=== PATIENT | male | born 1975 | race Caucasian/White ===

== ENCOUNTER 2017-11-28 13:55 | Inpatient (IN) | payer OTHER ==
[~2017-11-28] VITALS: Ht 188 cm; Wt 90.7 kg
[2017-11-28 14:29] LABS: BASOPHILS % (AUTO) 0.3 % (0.0-2.0); EOSINOPHILS % (AUTO) 0.1 % (0.0-7.0); HEMATOCRIT 41.9 % (36.7-47.1); HEMOGLOBIN 14.3 g/dL (12.5-16.3); LYMPHOCYTES # (AUTO) 1.7 K/uL (20.0-40.0); LYMPHOCYTES % (AUTO) 13.8 % (20.5-51.5); MEAN CORPUSCULAR HEMOGLOBIN 30.5 uug (23.8-33.4); MEAN CORPUSCULAR HGB CONC 34 g/dL (32.5-36.3); MEAN CORPUSCULAR VOLUME 89.2 fL (73.0-96.2); MONOCYTES # (AUTO) 1.3 K/uL (2.0-10.0); MONOCYTES % (AUTO) 10.4 % (0.0-11.0); NEUTROPHILS # (AUTO) 9.3 K/uL (1.8-8.9); NEUTROPHILS % (AUTO) 75.4 % (38.5-71.5); PLATELET COUNT (AUTO) 163 K/uL (152-348); RED BLOOD CELL COUNT(AUTO) 4.69 MIL/uL (4.06-5.63); WHITE BLOOD COUNT (AUTO) 12.3 K/uL (3.6-10.2)
[2017-11-28] MEDS ORDERED: ONDANSETRON 4 MG/2 ML VIAL IV ONE (14:30)
[2017-11-28] MEDS ORDERED: HYDROMORPHONE 1 MG/1 ML DISP.SYRIN IV ONE (14:30)
[2017-11-28] MEDS ORDERED: IV NORMAL SALINE 500 ML BAG IV ONE (14:30)
[2017-11-28 14:38] LABS: CREATININE 1.1 mg/dL (0.6-1.3); POTASSIUM 3.6 mmol/L (3.5-5.1)
[2017-11-28 14:48] LABS: BILIRUBIN,DIRECT 0.3 mg/dL (0.0-0.2); BILIRUBIN,TOTAL 1.1 mg/dL (0.1-1.0)
[2017-11-28 14:49] LABS: TOTAL PROTEIN, SERUM 7.2 g/dL (6.4-8.2)
--- NOTE | 2017-11-28 14:58 | NUR ---
Patient stated he needed to obtain items from his car, exited ER. MAXIMO stated OK. Addendum: 11/28/17 at 1659 by SMOOTH IV removed. Catheter intact and site benign. Pressure and 4x4 gauze applied to site. No bleeding noted.
--- NOTE | 2017-11-28 15:02 | NUR ---
MAXIMO speaking to Luis Daly (SURGERY).
--- NOTE | 2017-11-28 15:58 | NUR ---
Patient did not return from his car, a call was placed to the patient's cell phone and he stated he was on his way back inside.
--- NOTE | 2017-11-28 16:22 | NUR ---
Patient returned to room. ERMD notified.
--- NOTE | 2017-11-28 16:50 | NUR ---
Dr. Cole and Arias Ramirez (SENIOR LINUX ENGINEER) at bedside.
--- NOTE | 2017-11-28 16:50 | NUR ---
Full telephone SBAR report received by JAY Morse.
[2017-11-28] MEDS ORDERED: METRONIDAZOLE 500 MG/NS 100ML 100 ML IV ONE (17:00)
[2017-11-28] MEDS ORDERED: CEFTRIAXONE 1 G VIAL ONE (17:00)
[2017-11-28] MEDS ORDERED: ONDANSETRON 4 MG/2 ML VIAL IV PRN (17:00)
[2017-11-28] MEDS ORDERED: METRONIDAZOLE 500 MG/NS 100 ML PIGGYBACK IV ONE (17:00)
[2017-11-28] MEDS ORDERED: CEFTRIAXONE 1 G in IV DEXTROSE 5% 50 ML IV ONE (17:00)
[2017-11-28] MEDS ORDERED: MORPHINE SULFATE 2 MG/1 ML DISP.SYRIN IV PRN (17:00)
[2017-11-28 17:30] VITALS: BP 137/66
[2017-11-28] MEDS ORDERED: MORPHINE SULFATE 4 MG/1 ML DISP.SYRIN IV PRN (17:30)
--- NOTE | 2017-11-28 17:30 | NUR ---
Pt walked into the unit with ER nurse to CCU-4 for admission (med/surg). Pt a&Ox4, 0 complains of pain. Pt verbalized understanding of plan of care.
--- NOTE | 2017-11-28 17:47 | NUR ---
Pt. admitted to [facility], under care of Arias Ramirez (STEPHANIE) Belongs List completed
[2017-11-28] MEDS: IV NS 1000 ML 1,000 ML IV PRN (17:53)
--- NOTE | 2017-11-28 18:55 | NUR ---
Pt transferred to room 205 med/surg. Pt stable and nad noted upon transfer.
[2017-11-28 20:00] VITALS: BP 115/61
--- NOTE | 2017-11-28 20:00 | NUR ---
Received patient laying comfortably in bed. No acute distress noted. Patient is A/O x 4. NPO status. Patient report a slight discomfort in the abdomen area but refuse pain medication. Reported chills. Vital signs stable. No temperature. IVF infusing on the Right FA. Safety initiated. Call light within reach. Bed in low and locked position. Will continue to monitor.
[2017-11-28] MEDS: METRONIDAZOLE 500 MG/NS 100ML 500 MG in PREMIXED 1 EACH IV SCH (21:35)
[2017-11-29 04:00] VITALS: BP 114/63
[2017-11-29] MEDS: IV NS 1000 ML 1,000 ML IV PRN ×2 (05:18→10:31)
[2017-11-29] MEDS: METRONIDAZOLE 500 MG/NS 100ML 500 MG in PREMIXED 1 EACH IV SCH (05:18)
--- NOTE | 2017-11-29 05:33 | NUR ---
Patient slept intermittently t/o shift. No acute distress noted. Patient remains A/O x 4. Maintained NPO. Patient report a slight discomfort in the abdomen area but refuse pain medication. Vital signs stable. Slight temperature. Cooling measures implemented. Latest temperature was 98.8. IVF infusing on the Right FA. no signs of leaking. Safety and comfort measures maintained t/o shift. Call light within reach. Bed in low and locked position. Room is kept clutter free. All meds given as ordered. All needs met.
[2017-11-29 06:57] LABS: BASOPHILS # (AUTO) 0.1 K/uL (0.0-8.0); BASOPHILS % (AUTO) 0.7 % (0.0-2.0); EOSINOPHILS % (AUTO) 0.2 % (0.0-7.0); HEMOGLOBIN 13.4 g/dL (12.5-16.3); LYMPHOCYTES # (AUTO) 1.3 K/uL (20.0-40.0); LYMPHOCYTES % (AUTO) 13.2 % (20.5-51.5); MEAN CORPUSCULAR HEMOGLOBIN 31.6 uug (23.8-33.4); MEAN CORPUSCULAR HGB CONC 35 g/dL (32.5-36.3); MEAN CORPUSCULAR VOLUME 89.9 fL (73.0-96.2); MONOCYTES % (AUTO) 9.8 % (0.0-11.0); NEUTROPHILS # (AUTO) 7.4 K/uL (1.8-8.9); NEUTROPHILS % (AUTO) 76.1 % (38.5-71.5); PLATELET COUNT (AUTO) 146 K/uL (152-348); RED BLOOD CELL COUNT(AUTO) 4.23 MIL/uL (4.06-5.63); WHITE BLOOD COUNT (AUTO) 9.8 K/uL (3.6-10.2)
[2017-11-29 07:14] LABS: CREATININE 1.1 mg/dL (0.6-1.3); MAGNESIUM 1.9 mg/dL (1.8-2.4); PHOSPHOROUS 3.5 mg/dL (2.5-4.9); POTASSIUM 3.6 mmol/L (3.5-5.1)
--- NOTE | 2017-11-29 07:30 | NUR ---
ON BED, RESTING. DENIES ACUTE PAIN, ANXIOUS FOR DIET ADVANCE, WILL ADVISED OF CHANGE IN NURSING PLAN. APPRECIATIVE.
[2017-11-29] MEDS: PANTOPRAZOLE SODIUM 40 MG VIAL IV SCH (08:35)
--- NOTE | 2017-11-29 09:30 | NUR ---
VISITOR AT BEDSIDE, SUPPORTIVE OF PATIENT CARE.
--- NOTE | 2017-11-29 11:01 | NUR ---
DIET ADVANCED TO CLEAR LIQUID ORDERED, WILL MONITOR.
[2017-11-29 11:32] VITALS: BP_SYST 100; BP_DIAS 25; BP_DIAS 51
[2017-11-29] MEDS: PIPERACILLIN/TAZOBACTAM/D5W 50 ML IV SCH ×2 (12:33→18:07)
--- NOTE | 2017-11-29 16:00 | NUR ---
AMBULATED IN HALLWAY, TOLERATED WELL. TAKING FLUIDS WELL, VOIDING WELL. DIDNT LIKE ONE FLUID FROM DIETARY, PATIENT STATED WILL NOT TAKE, REINFORCED.
[2017-11-29 16:09] VITALS: BP 102/58
[2017-11-29] MEDS ORDERED: CEFTRIAXONE 1 G in IV DEXTROSE 5% 50 ML IV SCH (17:00)
--- NOTE | 2017-11-29 19:17 | NUR ---
SEEMED TIRED , WANTED TO SLEEP OFF DISCOMFORT ABDOMEN, REFUSED PAIN MED FOR SHIFT
[2017-11-29 19:30] VITALS: BP 107/60
--- NOTE | 2017-11-29 20:00 | NUR ---
Received patient laying comfortably in bed. No acute distress noted. Patient is A/O x 4. Clear liquid diet. Patient report a slight discomfort in the abdomen area after drinking milk, but refuse medication. Vital signs stable. IVF infusing on the Right FA. Safety initiated. Call light within reach. Bed in low and locked position. Will continue to monitor.
--- NOTE | 2017-11-29 20:30 | NUR ---
Patient running a temperature 100.8. Cooling measures implemented. Informed LOGGING WORKER Arias. New orders were given. Tylenol given to patient. Will continue to monitor.
[2017-11-29] MEDS: ACETAMINOPHEN 325 MG TABLET PO PRN (20:34)
[2017-11-30] MEDS: PIPERACILLIN/TAZOBACTAM/D5W 50 ML IV SCH ×5 (00:05→23:59)
--- NOTE | 2017-11-30 00:11 | NUR ---
Rechecked temperature 98.4 orally. Reports discomfort. Will closely monitor.
[2017-11-30 04:55] VITALS: BP 104/62
--- NOTE | 2017-11-30 05:17 | NUR ---
Patient slept intermittently t/o shift. No acute distress noted. Patient remains A/O x 4. Maintained NPO since midnight per EDWIN Bianchi. Patient report a slight discomfort in the abdomen area but refuse pain medication. 0400 Vital signs stable. No temperature. IVF infusing on the Right FA. Patent and intact. Urinating ok. Reports having a small BM. Safety and comfort measures maintained t/o shift. Call light within reach. Bed in low and locked position. Room is kept clutter free. All meds given as ordered. All needs met.
[2017-11-30] MEDS: IV NS 1000 ML 1,000 ML IV PRN (06:08)
[2017-11-30 06:21] LABS: BASOPHILS # (AUTO) 0.1 K/uL (0.0-8.0); BASOPHILS % (AUTO) 0.6 % (0.0-2.0); EOSINOPHILS # (AUTO) 0.1 K/uL (0.0-0.7); EOSINOPHILS % (AUTO) 0.7 % (0.0-7.0); HEMATOCRIT 38.3 % (36.7-47.1); HEMOGLOBIN 13.5 g/dL (12.5-16.3); LYMPHOCYTES # (AUTO) 1.3 K/uL (20.0-40.0); LYMPHOCYTES % (AUTO) 12.5 % (20.5-51.5); MEAN CORPUSCULAR HEMOGLOBIN 31.2 uug (23.8-33.4); MEAN CORPUSCULAR HGB CONC 35 g/dL (32.5-36.3); MEAN CORPUSCULAR VOLUME 88.7 fL (73.0-96.2); MONOCYTES % (AUTO) 9.9 % (0.0-11.0); NEUTROPHILS # (AUTO) 7.8 K/uL (1.8-8.9); NEUTROPHILS % (AUTO) 76.3 % (38.5-71.5); PLATELET COUNT (AUTO) 157 K/uL (152-348); RED BLOOD CELL COUNT(AUTO) 4.32 MIL/uL (4.06-5.63); WHITE BLOOD COUNT (AUTO) 10.2 K/uL (3.6-10.2)
--- NOTE | 2017-11-30 06:36 | NUR ---
Patient running a temperature 100.1. Cooling measures implemented. Will continue to monitor.
[2017-11-30 06:43] LABS: CREATININE 1.1 mg/dL (0.6-1.3); POTASSIUM 3.6 mmol/L (3.5-5.1)
[2017-11-30] MEDS: PANTOPRAZOLE SODIUM 40 MG VIAL IV SCH (09:30)
[2017-11-30 11:16] VITALS: BP 112/64
[2017-11-30 15:10] VITALS: BP 117/52
[2017-11-30] MEDS: ACETAMINOPHEN 325 MG TABLET PO PRN (15:20)
--- NOTE | 2017-11-30 16:39 | NUR ---
MEDICATING FOR FEVER, INITIATING COOLING MEASURES, AMBULATING HE WISHES
--- NOTE | 2017-11-30 18:42 | NUR ---
INFORMED ABOUT PT TEMP 101, STATES WILL F/U IN THE MORNING.
[2017-11-30 19:00] VITALS: BP 101/47
--- NOTE | 2017-11-30 19:00 | NUR ---
UP AND WALKING AROUND, COOLING MEASURES INITIATED FOR TEMP 101.
--- NOTE | 2017-11-30 20:00 | NUR ---
Received patient laying comfortably in bed. Denies pain and SOB. IVF infusing on the left AC. A/O x 4. Ambulatory with steady gait. NPO status. No skin issues. Safety initiated. Call light within reach. Will continue to monitor.
[2017-12-01 04:24] VITALS: BP 123/58
--- NOTE | 2017-12-01 05:23 | NUR ---
No changes t/o shift. No acute distress. Remains A/O x 4. IVF fluids infusing. Refuse pain or discomfort. Vitals signs stable. Latest temp was 99.2. Good urine output. Safety and comfort measures maintained t/o shift. All meds given as ordered. All needs met.
[2017-12-01] MEDS: IV NS 1000 ML 1,000 ML IV PRN ×2 (05:30→20:31)
[2017-12-01] MEDS: PIPERACILLIN/TAZOBACTAM/D5W 50 ML IV SCH ×4 (05:30→23:58)
[2017-12-01 06:14] LABS: BASOPHILS % (AUTO) 0.4 % (0.0-2.0); EOSINOPHILS % (AUTO) 0.4 % (0.0-7.0); HEMATOCRIT 38.5 % (36.7-47.1); HEMOGLOBIN 13.5 g/dL (12.5-16.3); LYMPHOCYTES # (AUTO) 1.5 K/uL (20.0-40.0); MEAN CORPUSCULAR HEMOGLOBIN 31.6 uug (23.8-33.4); MEAN CORPUSCULAR HGB CONC 35 g/dL (32.5-36.3); MEAN CORPUSCULAR VOLUME 90.1 fL (73.0-96.2); MONOCYTES # (AUTO) 1.2 K/uL (2.0-10.0); MONOCYTES % (AUTO) 11.4 % (0.0-11.0); NEUTROPHILS # (AUTO) 7.4 K/uL (1.8-8.9); NEUTROPHILS % (AUTO) 72.8 % (38.5-71.5); PLATELET COUNT (AUTO) 172 K/uL (152-348); RED BLOOD CELL COUNT(AUTO) 4.27 MIL/uL (4.06-5.63); WHITE BLOOD COUNT (AUTO) 10.2 K/uL (3.6-10.2)
[2017-12-01 06:22] LABS: CREATININE 1.2 mg/dL (0.6-1.3); POTASSIUM 3.8 mmol/L (3.5-5.1)
[2017-12-01] MEDS ORDERED: IRR NORMAL SALINE IRRIGATION 2000 ML BOTTLE IR ONE (07:41)
[2017-12-01] MEDS ORDERED: LIDOCAINE HCL 2% 20 ML VIAL MC ONE (07:41)
[2017-12-01] MEDS ORDERED: KETOROLAC TROMETHAMINE 30 MG INJ IM ONE (07:41)
[2017-12-01] MEDS ORDERED: DEXAMETHASONE SOD PHOSPHATE 4 MG INJ IV ONE (07:41)
[2017-12-01] MEDS ORDERED: NEOSTIGMINE METHYLSULFATE 10 MG/10 ML VIAL IV ONE (07:41)
[2017-12-01] MEDS ORDERED: SEVOFLURANE 250 ML BOTTLE IH ONE (07:41)
[2017-12-01] MEDS ORDERED: IV LACTATED RINGERS SOLUTION 1,000 ML BAG IV ONE (07:41)
[2017-12-01] MEDS ORDERED: CEFAZOLIN 1 G VIAL MC ONE (07:41)
[2017-12-01] MEDS ORDERED: PROPOFOL 200 MG/20 ML BOTTLE IV ONE (07:41)
[2017-12-01] MEDS ORDERED: GLYCOPYRROLATE 0.2 MG/ML VIAL MC ONE (07:41)
[2017-12-01] MEDS ORDERED: ONDANSETRON 4 MG/2 ML VIAL IV ONE (07:41)
[2017-12-01] MEDS: PANTOPRAZOLE SODIUM 40 MG VIAL IV SCH (11:13)
[2017-12-01 12:06] VITALS: BP 114/64
[2017-12-01 15:46] VITALS: BP 114/58
[2017-12-01] MEDS ORDERED: FENTANYL CITRATE 100 MCG/2 ML AMPUL ONE (17:07)
[2017-12-01] MEDS ORDERED: ROCURONIUM BROMIDE 50 MG/5 ML VIAL ONE (17:07)
[2017-12-01] MEDS ORDERED: MIDAZOLAM HCL 2 MG/2 ML VIAL ONE (17:07)
[2017-12-01] MEDS ORDERED: LIDOCAINE 1%-EPI 1:100,000 20 ML VIAL ONE (17:31)
[2017-12-01] MEDS ORDERED: BUPIVACAINE 0.25% 30 ML VIAL ONE (17:31)
--- NOTE | 2017-12-01 19:35 | NUR ---
RECEIVED PT AT 1930 VIA [employer] AFTER A PROCEDURE. AMIRAH BOOKER,RN ENDORSE TO ME THAT PT IS AFEBRILE AND OTHER VITAL SIGNS ARE WITHIN NORMAL LIMIT. PT ON DARIUS DRAIN. CALL LIGHT WITHIN REACH,BED ALARM ON, BED IN LOW POSITION ,AND SIDE RAILS X2UP. WILL CONTINUE TO MONITOR.
[2017-12-01 20:00] VITALS: BP 105/50
--- NOTE | 2017-12-01 20:00 | NUR ---
CALLED DR. ANGEL MEJIA REGARDING PT REQUEST IF HE CAN EAT AND DRINK ALREADY. STILL WAITING FOR REPLY OF THE DR. PT SHOWS NO SIGNS OF DISTRESS. WILL CONTINUE TO MONITOR.
--- NOTE | 2017-12-01 20:45 | NUR ---
DR. MEJIA REPLIED AND ORDERED THAT PT STILL ON NPO. I RELAYED THE ORDERED OF DR. MEJIA TO THE PT. WILL CONTINUE TO MONITOR.
[2017-12-01] MEDS: MORPHINE SULFATE 4 MG/1 ML DISP.SYRIN IV PRN (21:30)
[2017-12-02 04:00] VITALS: BP 103/57
--- NOTE | 2017-12-02 04:00 | NUR ---
TEACH PT HOW TO USE THE INCENTIVE SPIROMETER. PT UNDERSTAND AND DEMONSTRATED IT. SAFETY PROVIDED. WILL CONTINUE TO MONITOR.
[2017-12-02] MEDS: MORPHINE SULFATE 4 MG/1 ML DISP.SYRIN IV PRN ×3 (04:04→21:55)
[2017-12-02] MEDS: PIPERACILLIN/TAZOBACTAM/D5W 50 ML IV SCH ×4 (05:12→23:17)
--- NOTE | 2017-12-02 06:53 | NUR ---
PT SLEPT THROUGHOUT THE SHIFT. PT SHOWS NO SIGNS OF DISTRESS. IV INTACT AND PATENT.DARIUS DRAINING WELL. DRAINED 75 CC. PT DIDN'T VOID. SAFETY AND COMFORT PROVIDED. WILL ENDORSE TO DAYSHIFT NURSE.
[2017-12-02 07:23] LABS: CREATININE 0.9 mg/dL (0.6-1.3); POTASSIUM 4.4 mmol/L (3.5-5.1)
[2017-12-02 07:31] LABS: BASOPHILS % (AUTO) 0.1 % (0.0-2.0); HEMATOCRIT 39.1 % (36.7-47.1); HEMOGLOBIN 13.6 g/dL (12.5-16.3); LYMPHOCYTES # (AUTO) 0.9 K/uL (20.0-40.0); LYMPHOCYTES % (AUTO) 8.8 % (20.5-51.5); MEAN CORPUSCULAR HEMOGLOBIN 31.2 uug (23.8-33.4); MEAN CORPUSCULAR HGB CONC 35 g/dL (32.5-36.3); MEAN CORPUSCULAR VOLUME 90.1 fL (73.0-96.2); MONOCYTES # (AUTO) 0.9 K/uL (2.0-10.0); MONOCYTES % (AUTO) 8.8 % (0.0-11.0); NEUTROPHILS # (AUTO) 8.1 K/uL (1.8-8.9); NEUTROPHILS % (AUTO) 82.3 % (38.5-71.5); PLATELET COUNT (AUTO) 194 K/uL (152-348); RED BLOOD CELL COUNT(AUTO) 4.34 MIL/uL (4.06-5.63); WHITE BLOOD COUNT (AUTO) 9.9 K/uL (3.6-10.2)
[2017-12-02] MEDS: PANTOPRAZOLE SODIUM 40 MG VIAL IV SCH (09:37)
--- NOTE | 2017-12-02 10:30 | NUR ---
VOIDED 500 CC MYO=[id number]
[2017-12-02 11:09] VITALS: BP 90/53
--- NOTE | 2017-12-02 12:30 | NUR ---
VOIDED 250 OGA=[id number]
[2017-12-02] MEDS: IV NS 1000 ML 1,000 ML IV PRN (12:46)
--- NOTE | 2017-12-02 15:00 | NUR ---
VOIDED 200 CC UAX=[id number] CC. ALSO HAD SMALL BM
[2017-12-02 15:26] VITALS: BP 104/68
[2017-12-02 20:00] VITALS: BP 122/64
--- NOTE | 2017-12-02 22:42 | NUR ---
RECEIVED PT AWAKE, ALERT, ORIENTEDX4. PT SHOWS NO SIGNS OF DISTRESS. PT IV INTACT AND PATENT.DARIUS DRAIN IN PLACE. CHECK THE POST RESIDUAL URINE FROM BLADDER SCANNER. WE GOT 200CC . DAYSHIFT NURSE RELAY THE INFORMATION TO THE DOCTOR. DOCTOR ORDERED CLEAR LIQUID TO THE PT. ADVISED PT TO WALK SO THAT HE CAN URINATE AND MOVE HIS BOWEL. CALL LIGHT WITHIN REACH, BED ALARM ON AND IN LOW POSITION AND SIDE RAILS UPX2. WILL CONTINUE TO MONITOR.
[2017-12-03] MEDS: MORPHINE SULFATE 4 MG/1 ML DISP.SYRIN IV PRN ×3 (02:03→23:12)
[2017-12-03] MEDS: IV NS 1000 ML 1,000 ML IV PRN ×2 (04:27→21:13)
[2017-12-03 04:29] VITALS: BP 98/46
[2017-12-03] MEDS: PIPERACILLIN/TAZOBACTAM/D5W 50 ML IV SCH ×5 (05:05→18:04)
--- NOTE | 2017-12-03 06:41 | NUR ---
PT SLEPT INTERMITTENTLY.PRESCRIBED MEDICATION GIVEN AND PT TOLERATED IT WELL. IV INTACT. VITAL SIGNS WNL.PAIN MANAGEMENT DONE. ENCOURAGED PT TO USE HIS INCENTIVE SPIROMETRY. DARIUS DRAINING WELL 75 CC. PT WALKED LAST NIGHT 5 ROUNDS. PT URINATED AT 954PM 125 ML THEN POST RESIDUAL VOLUME OF 158ML AND AT 0150AM PT VOIDED 175ML AND PRV IS 83ML. CALL LIGHT WITHIN REACH. SAFETY AND COMFORT PROVIDED. WILL ENDORSE TO DAYSHIFT NURSE.
[2017-12-03 06:48] LABS: BASOPHILS % (AUTO) 0.7 % (0.0-2.0); EOSINOPHILS # (AUTO) 0.1 K/uL (0.0-0.7); EOSINOPHILS % (AUTO) 0.8 % (0.0-7.0); HEMATOCRIT 37.3 % (36.7-47.1); HEMOGLOBIN 12.7 g/dL (12.5-16.3); LYMPHOCYTES # (AUTO) 1.6 K/uL (20.0-40.0); LYMPHOCYTES % (AUTO) 22.3 % (20.5-51.5); MEAN CORPUSCULAR HEMOGLOBIN 30.8 uug (23.8-33.4); MEAN CORPUSCULAR HGB CONC 34 g/dL (32.5-36.3); MONOCYTES # (AUTO) 0.8 K/uL (2.0-10.0); MONOCYTES % (AUTO) 11.3 % (0.0-11.0); NEUTROPHILS # (AUTO) 4.6 K/uL (1.8-8.9); NEUTROPHILS % (AUTO) 64.9 % (38.5-71.5); PLATELET COUNT (AUTO) 206 K/uL (152-348); RED BLOOD CELL COUNT(AUTO) 4.14 MIL/uL (4.06-5.63); WHITE BLOOD COUNT (AUTO) 7.1 K/uL (3.6-10.2)
[2017-12-03 07:00] LABS: CREATININE 1.1 mg/dL (0.6-1.3); POTASSIUM 3.7 mmol/L (3.5-5.1)
--- NOTE | 2017-12-03 07:15 | NUR ---
PT AOX4, IRRITABLE, DRAINAGE INTACT,DRAINAGE IN DARIUS IS serosanguineous, DRESSING AND AREA OF INSERTION WNL, CLEAR LIQUID DIET, AMBULATORY. NO SIGNS OF DISTRESS, CONTINUE TO MONITOR.
[2017-12-03] MEDS: PANTOPRAZOLE SODIUM 40 MG VIAL IV SCH (08:41)
--- NOTE | 2017-12-03 09:15 | NUR ---
PT VOIDED 300CC IN URINAL, DARK YELLOW, WNL ODOR. BLADDER SCAN POST VOLUME RESIDUAL 43CC. CONTINUE TO MONITOR PT.
--- NOTE | 2017-12-03 11:15 | NUR ---
PT VOIDED 175CC IN URINAL. BLADDER SCAN POST VOLUME RESIDUAL 86CC. CONTINUE TO MONITOR PT.
[2017-12-03 11:46] VITALS: BP 112/66
--- NOTE | 2017-12-03 14:07 | NUR ---
PT VOIDED 250CC IN URINAL. BLADDER SCAN POST VOLUME RESIDUAL 75CC. CONTINUE TO MONITOR PT.
[2017-12-03 15:28] VITALS: BP 115/62
--- NOTE | 2017-12-03 17:00 | NUR ---
PT VOIDED 250CC IN URINAL, CONTINUE TO MONITOR PT.
--- NOTE | 2017-12-03 18:04 | NUR ---
OBSERVED PT'S IV PUMP. PUMP OFF. PT AMBULATES AROUND THE UNIT AND DIDN'T PLUG IN PUMP. 1200 ZOSYN NOT GIVEN. STARTED NOW. CHARGE NURSE AND PHARMACY NOTIFIED. CONTINUE TO MONITOR PT.
--- NOTE | 2017-12-03 18:23 | NUR ---
PT VOIDED 50CC, PVR= 118CC
--- NOTE | 2017-12-03 18:29 | NUR ---
PT VOIDING THROUGHOUT DAY, NO BM, CALM, COOPERATIVE, MEDICATION COMPLIANT, NO SIGNS OF RESPIRATORY DISTRESS. CONTINUE TO MONITOR PT.
[2017-12-03 20:00] VITALS: BP 108/57
--- NOTE | 2017-12-03 20:00 | NUR ---
RECEIVED PATIENT AMBULATING AROUND IN HALLWAY. PATIENT IS A/O X4. C/O MILD PAIN/DISCOMFORT, BUT DENIES THE NEED FOR ANY PAIN MEDICATION AT THIS TIME. PATIENT WANTS HIS PAIN MEDICATION LATER AT BEDTIME. NO RESP. DISTRESS NOTED. IVF INFUSING WELL TO LEFT AC #20 GAUGE. DARIUS INTACT AND DRAINING. CALL LIGHT IN REACH. ALL NEEDS ATTENDED. WILL CONTINUE TO MONITOR AND ASSESS.
--- NOTE | 2017-12-03 21:15 | NUR ---
PATIENT VOIDED 200cc OF URINE. CHECKED BLADDER PVR AND RECEIVED 0cc. NO RESIDUAL NOTED. WILL CONTINUE TO MONITOR AND ASSESS.
--- NOTE | 2017-12-03 21:50 | NUR ---
PATIENT AWAKE IN BED. ASKING FOR PAIN MEDICATION.
--- NOTE | 2017-12-03 22:10 | NUR ---
OFFICE SUPERVISOR AT BEDSIDE TO GIVEN MS 2MG IV FOR PAIN. PATIENT REFUSED AT THIS TIME. STATING HE CHANGED HIS MIND AND WANTS TO WAIT. HE WILL CALL BACK FOR PAIN MEDICATION. ALL NEEDS ATTENDED.
--- NOTE | 2017-12-03 23:00 | NUR ---
PATIENT HAS LOOSE BM IN BATHROOM. PATIENT DENIES VOIDING. PATIENT REFUSED FOR BLADDER SCAN AT THIS TIME, STATING HE DID NOT URINATE AND DENIES ANY PAIN OR DISCOMFORT. PATIENT INFORMED THAT MD WANTS BLADDER TO BE SCANNED EVERY 2 HOURS. PATIENT STATED, HE WOULD CALL AFTER EACH VOID. [place] CHARGE NOTIFIED. WILL CONTINUE TO MONITOR AND ASSESS.
[2017-12-04] MEDS: PIPERACILLIN/TAZOBACTAM/D5W 50 ML IV SCH ×5 (00:09→23:17)
[2017-12-04 03:25] VITALS: BP 118/73
[2017-12-04] MEDS: MORPHINE SULFATE 4 MG/1 ML DISP.SYRIN IV PRN ×2 (03:52→22:43)
--- NOTE | 2017-12-04 04:00 | NUR ---
PATIENT AWAKE IN BED. C/O PAIN, ASKING FOR PAIN MEDICATION. PATIENT GIVEN MORPHINE 2MG IV PER ICD 9 CODER. CHECKED PATIENTS BLADDER WITH SCANNER AND RECEIVED 317cc, RECHECKED AND THEN RECEIVED 545cc. PATIENT ENCOURAGED TO GET UP AND URINATE. PATIENT URINATED 325cc. CHECKED PVR WITH SCANNER AND RECEIVED 0cc. WILL CONTINUE TO MONITOR AND ASSESS.
[2017-12-04] MEDS: PANTOPRAZOLE SODIUM 40 MG TABLET.DR PO SCH (06:01)
--- NOTE | 2017-12-04 06:08 | NUR ---
PATIENT ASLEEP. EASILY AROUSABLE. IVF INFUSING WELL. NO C/O PAIN AT THIS TIME. NO RESP.DISTRESS NOTED. CALL LIGHT IN REACH. ALL NEEDS ATTENDED. WILL CONTINUE TO MONITOR.
--- NOTE | 2017-12-04 07:30 | NUR ---
patient resting comfortably in bed. stable condition. no s/s of distress. abx will be administered. pain management will be provided. ambulatory, a/ox4. bladder will be scanned as needed. will monitor urine output.
--- NOTE | 2017-12-04 09:10 | NUR ---
Bladder scanned: 0 ml noted. Patient urinated, does not appear to be retaining urine. Notified MD ZAYRA ordered to end bladder scans.
[2017-12-04 11:38] VITALS: BP 117/61
[2017-12-04] MEDS: IV NS 1000 ML 1,000 ML IV PRN (12:15)
[2017-12-04 15:14] VITALS: BP 113/64
[2017-12-04 20:00] VITALS: BP 95/71
--- NOTE | 2017-12-04 20:00 | NUR ---
RECEIVED PATIENT AWAKE IN BED WITH VISITORS AT BEDSIDE. PATIENT IS A/O X4. C/O MILD DISCOMFORT, BUT DENIES THE NEED FOR PAIN MEDICATION AT THIS TIME. VS WNL. IVF INFUSING WELL TO LEFT FA #20 GAUGE. DARIUS BULB INTACT WITH YELLOWISH DRAINING NOTED. CALL LIGHT IN REACH. ALL NEEDS ATTENDED. WILL CONTINUE TO MONITOR.
[2017-12-05 04:00] VITALS: BP 109/61
[2017-12-05] MEDS: IV NS 1000 ML 1,000 ML IV PRN (04:17)
--- NOTE | 2017-12-05 05:26 | NUR ---
PATIENT ASLEEP IN BED. EASILY AROUSABLE. SLEPT WELL. NO C/O PAIN AT THIS TIME. NO RESP. DISTRESS NOTED. PATIENT FREQUENTLY VOIDED THROUGHOUT THE NIGHT. DENIES ANY PRESSURE OR DISCOMFORT. DARIUS DRAIN NOTED WITH LIGHT YELLOWISH FLUID. VS WNL. CALL LIGHT IN REACH. ALL NEEDS ATTENDED. WILL CONTINUE TO MONITOR AND ASSESS.
[2017-12-05] MEDS: PIPERACILLIN/TAZOBACTAM/D5W 50 ML IV SCH ×2 (05:32→11:38)
--- NOTE | 2017-12-05 07:39 | NUR ---
Patient resting comfortably in bed at this time. No pain verbalized by patient. stable condition, no s/s of distress. DARIUS drain output adequate with light pink color. Possible D/C today. Education will be provided regarding DARIUS Drainage care. will continue to monitor. pain management will be provided as needed. abx will be administered.
[2017-12-05] MEDS: PANTOPRAZOLE SODIUM 40 MG TABLET.DR PO SCH (08:24)
[2017-12-05 11:21] VITALS: BP 112/64
[2017-12-05] MEDS ORDERED: METR500T PO (11:52)
[2017-12-05] MEDS ORDERED: LEVO750T46 PO (11:52)
[2017-12-05] MEDS ORDERED: HYDR-3326 PO (11:52)
[2017-12-05 14:50] VITALS: BP 100/63
--- NOTE | 2017-12-05 15:00 | NUR ---
PATIENT DISCHARGED AT THIS TIME IN STABLE CONDITION. NO S/S OF DISTRESS. PATIENT LEFT HOSPITAL VIA GIRLFRIEND. ID-BAND TAKEN OFF, IV-ACCESS DISCONNECTED. DARIUS DRAIN SITE AND INCISIONAL SITES CHECKED AND SKIN CARE PROVIDED. EDUCATION FOR DARIUS DRAIN CARE AND SKIN CARE FOR INCISIONS PROVIDED AND PATIENT VERBALIZED UNDERSTANDING. DISCHARGE PACKET COMPLETED, INSTRUCTIONS/EDUCATION PROVIDED TO PATIENT, DISCHARGE PACKET SIGNED. PATIENT UNDERSTANDS THAT HE HAS TO FOLLOW UP AT DR. ANGEL MEJIA'S OFFICE WITHIN 7-DAYS OF BEING DISCHARGED.
== END 2017-12-05 15:00 | disposition home or self-care (01) | DRG 248 ==
LOC: ER 13:57 → CCU 16:57 → MED 18:55
PROVIDERS: ADMIT Nurse Practitioner Acute Care; ATTEND Nurse Practitioner Acute Care
PROC: 0W9G40Z Drainage of Peritoneal Cavity with Drainage Device, Percutaneous Endoscopic Approach (ICD-10-PCS; principal; 2017-12-01 17:08)
PROC: 3E1M38Z Irrigation of Peritoneal Cavity using Irrigating Substance, Percutaneous Approach (ICD-10-PCS; principal; 2017-12-01 17:08)
DX: K35.3 Acute appendicitis with localized peritonitis (principal); D69.6 Thrombocytopenia, unspecified; R17 Unspecified jaundice; E87.1 Hypo-osmolality and hyponatremia; E44.1 Mild protein-calorie malnutrition; E88.09 Other disorders of plasma-protein metabolism, not elsewhere classified; Z68.25 Body mass index [BMI] 25.0-25.9, adult; K59.00 Constipation, unspecified; F12.90 Cannabis use, unspecified, uncomplicated; E86.1 Hypovolemia; R33.9 Retention of urine, unspecified
CPT/HCPCS: 36415; 71045; 83690; 83735; 84100; 85025; 85730; 93005; A4217; A4663; C9113; J0690; J0696; J1100; J1885; J2250; J2270; J2405; J2543; J2710; J3010; J3490; J7030; J7060; J7120

== ENCOUNTER 2019-03-05 15:41 | Inpatient (IN) | payer OTHER ==
[~2019-03-05] VITALS: Ht 188 cm; Wt 95.3 kg
[2019-03-05 16:44] LABS: BASOPHILS # (AUTO) 0.1 K/uL (0.0-8.0); BASOPHILS % (AUTO) 0.5 % (0.0-2.0); EOSINOPHILS # (AUTO) 0.1 K/uL (0.0-0.7); EOSINOPHILS % (AUTO) 0.7 % (0.0-7.0); HEMATOCRIT 46.5 % (36.7-47.1); HEMOGLOBIN 15.7 g/dL (12.5-16.3); LYMPHOCYTES # (AUTO) 1.8 K/uL (20.0-40.0); LYMPHOCYTES % (AUTO) 17.5 % (20.5-51.5); MEAN CORPUSCULAR HEMOGLOBIN 31.4 uug (23.8-33.4); MEAN CORPUSCULAR HGB CONC 34 g/dL (32.5-36.3); MEAN CORPUSCULAR VOLUME 93.2 fL (73.0-96.2); MONOCYTES # (AUTO) 0.7 K/uL (2.0-10.0); MONOCYTES % (AUTO) 6.8 % (0.0-11.0); NEUTROPHILS # (AUTO) 7.7 K/uL (1.8-8.9); NEUTROPHILS % (AUTO) 74.5 % (38.5-71.5); PLATELET COUNT (AUTO) 158 K/uL (152-348); RED BLOOD CELL COUNT(AUTO) 4.99 MIL/uL (4.06-5.63); WHITE BLOOD COUNT (AUTO) 10.4 K/uL (3.6-10.2)
[2019-03-05 16:45] LABS: *BILIRUBIN,URIN NEGATIVE (NEGATIVE); *BLOOD, URINE NEGATIVE (NEGATIVE); *CLARITY,URINE CLEAR (CLEAR); *COLOR,URINE YELLOW (YELLOW); *KETONES,URINE NEGATIVE (NEGATIVE); LEUKOCYTE ESTERASE ,URINE NEGATIVE (NEGATIVE); NITRITE, URINE NEGATIVE (NEGATIVE); PH,URINE 7.5 (5.0-8.0); UGLUCOSE NEGATIVE (NEGATIVE)
[2019-03-05] MEDS ORDERED: IV NORMAL SALINE 1000 ML BAG IV ONE (16:45)
[2019-03-05] MEDS ORDERED: DIATR MEGLU/DIATRIZOATE SODIUM 120 ML BOTTLE PO ONE (16:45)
[2019-03-05] MEDS ORDERED: DIATR MEGLU/DIATRIZOATE SODIUM 30 ML SOLUTION ONE (16:48)
[2019-03-05 16:52] LABS: CREATININE 1.1 mg/dL (0.6-1.3); POTASSIUM 3.9 mmol/L (3.5-5.1)
[2019-03-05 16:53] LABS: MUCUS,URINE FEW /LPF (0-FEW); WBC,URINE 0-3 /HPF (0-3)
[2019-03-05 16:57] LABS: BILIRUBIN,DIRECT 0.2 mg/dL (0.0-0.2); BILIRUBIN,TOTAL 0.9 mg/dL (0.2-1.0); TOTAL PROTEIN, SERUM 7.9 g/dL (6.4-8.2)
[2019-03-05] MEDS ORDERED: IOHEXOL 300MG/ML 100 ML INFUS..BTL ONE (18:17)
[2019-03-05] MEDS ORDERED: IV NORMAL SALINE 250 ML IV ONE (18:17)
[2019-03-05] MEDS ORDERED: SWABABLE VALVE TRANSFER SET EA MC ONE (18:17)
[2019-03-05] MEDS ORDERED: PIPERACILLIN SODIUM/TAZOBACTAM 3.375 G in IV DEXTROSE 5% 50 ML IV ONE (19:45)
[2019-03-05] MEDS ORDERED: PIPERACILLIN SODIUM/TAZO 3.375 GM VIAL ONE (19:54)
[2019-03-05] MEDS ORDERED: MAGNESIUM HYDROXIDE 30 ML LIQUID UDC PO PRN (21:00)
[2019-03-05] MEDS ORDERED: ONDANSETRON 4 MG/2 ML VIAL IV PRN (21:00)
[2019-03-05] MEDS ORDERED: ACETAMINOPHEN 325 MG TABLET PO PRN (21:00)
[2019-03-05 22:22] VITALS: BP 107/70
[2019-03-05] MEDS: IV D5 1/2 NS 1000 ML 1,000 ML IV PRN (22:24)
[2019-03-05] MEDS: MORPHINE SULFATE 2 MG/1 ML DISP.SYRIN IV PRN (22:27)
[2019-03-06] MEDS ORDERED: PIPERACILLIN/TAZOBACTAM/D5W 50 ML IV ONE (01:32)
[2019-03-06] MEDS ORDERED: PIPERACILLIN SODIUM/TAZOBACTAM 3.375 G in IV DEXTROSE 5% 50 ML IV SCH (02:00)
[2019-03-06 05:43] VITALS: BP 112/73
[2019-03-06 06:53] LABS: BASOPHILS % (AUTO) 0.4 % (0.0-2.0); EOSINOPHILS % (AUTO) 0.2 % (0.0-7.0); HEMATOCRIT 41.5 % (36.7-47.1); HEMOGLOBIN 14.6 g/dL (12.5-16.3); LYMPHOCYTES # (AUTO) 1.4 K/uL (20.0-40.0); LYMPHOCYTES % (AUTO) 13.4 % (20.5-51.5); MEAN CORPUSCULAR HEMOGLOBIN 32.9 uug (23.8-33.4); MEAN CORPUSCULAR HGB CONC 35 g/dL (32.5-36.3); MEAN CORPUSCULAR VOLUME 93.4 fL (73.0-96.2); MONOCYTES # (AUTO) 0.8 K/uL (2.0-10.0); MONOCYTES % (AUTO) 7.9 % (0.0-11.0); NEUTROPHILS # (AUTO) 7.9 K/uL (1.8-8.9); NEUTROPHILS % (AUTO) 78.1 % (38.5-71.5); PLATELET COUNT (AUTO) 150 K/uL (152-348); RED BLOOD CELL COUNT(AUTO) 4.44 MIL/uL (4.06-5.63); WHITE BLOOD COUNT (AUTO) 10.2 K/uL (3.6-10.2)
[2019-03-06 07:07] LABS: BILIRUBIN,TOTAL 1.3 mg/dL (0.2-1.0); CREATININE 1.1 mg/dL (0.6-1.3); MAGNESIUM 1.9 mg/dL (1.8-2.4); PHOSPHOROUS 3.3 mg/dL (2.5-4.9); POTASSIUM 3.7 mmol/L (3.5-5.1); TOTAL PROTEIN, SERUM 6.9 g/dL (6.4-8.2)
[2019-03-06 07:12] LABS: THYROID STIMULATING HORMONE 0.455 mIU/mL (0.358-3.740)
[2019-03-06] MEDS: PIPERACILLIN/TAZOBACTAM/D5W 3.375 G in IV DEXTROSE 5% 50 ML IV SCH ×2 (09:22→17:05)
[2019-03-06 11:45] VITALS: BP 115/66
[2019-03-06] MEDS: IV D5 1/2 NS 1000 ML 1,000 ML IV PRN (13:11)
[2019-03-06 15:52] VITALS: BP 110/60
[2019-03-06 20:05] VITALS: BP 121/68
[2019-03-06] MEDS: MORPHINE SULFATE 2 MG/1 ML DISP.SYRIN IV PRN (23:31)
[2019-03-07] MEDS: PIPERACILLIN/TAZOBACTAM/D5W 3.375 G in IV DEXTROSE 5% 50 ML IV SCH ×3 (01:48→18:57)
[2019-03-07 04:01] VITALS: BP 105/60
[2019-03-07] MEDS: IV D5 1/2 NS 1000 ML 1,000 ML IV PRN (06:22)
[2019-03-07 06:27] LABS: BASOPHILS # (AUTO) 0.1 K/uL (0.0-8.0); BASOPHILS % (AUTO) 0.6 % (0.0-2.0); CREATININE 1.2 mg/dL (0.6-1.3); EOSINOPHILS # (AUTO) 0.1 K/uL (0.0-0.7); EOSINOPHILS % (AUTO) 0.8 % (0.0-7.0); HEMATOCRIT 41.4 % (36.7-47.1); LYMPHOCYTES # (AUTO) 1.6 K/uL (20.0-40.0); LYMPHOCYTES % (AUTO) 20.5 % (20.5-51.5); MEAN CORPUSCULAR HEMOGLOBIN 31.4 uug (23.8-33.4); MEAN CORPUSCULAR HGB CONC 34 g/dL (32.5-36.3); MEAN CORPUSCULAR VOLUME 92.7 fL (73.0-96.2); MONOCYTES # (AUTO) 0.9 K/uL (2.0-10.0); MONOCYTES % (AUTO) 11.9 % (0.0-11.0); NEUTROPHILS # (AUTO) 5.2 K/uL (1.8-8.9); NEUTROPHILS % (AUTO) 66.2 % (38.5-71.5); PLATELET COUNT (AUTO) 137 K/uL (152-348); POTASSIUM 3.9 mmol/L (3.5-5.1); RED BLOOD CELL COUNT(AUTO) 4.47 MIL/uL (4.06-5.63); WHITE BLOOD COUNT (AUTO) 7.9 K/uL (3.6-10.2)
[2019-03-07 11:06] VITALS: BP 112/60
[2019-03-07 15:08] VITALS: BP 103/58
[2019-03-07 20:07] VITALS: BP 108/61
[2019-03-07] MEDS: MORPHINE SULFATE 2 MG/1 ML DISP.SYRIN IV PRN (22:40)
[2019-03-08] MEDS: PIPERACILLIN/TAZOBACTAM/D5W 3.375 G in IV DEXTROSE 5% 50 ML IV SCH ×3 (01:23→18:16)
[2019-03-08 05:05] VITALS: BP 107/65
[2019-03-08 06:30] LABS: CREATININE 1.2 mg/dL (0.6-1.3); POTASSIUM 3.9 mmol/L (3.5-5.1)
[2019-03-08 06:55] LABS: BASOPHILS % (AUTO) 0.7 % (0.0-2.0); EOSINOPHILS # (AUTO) 0.1 K/uL (0.0-0.7); EOSINOPHILS % (AUTO) 1.8 % (0.0-7.0); HEMATOCRIT 40.9 % (36.7-47.1); HEMOGLOBIN 14.1 g/dL (12.5-16.3); LYMPHOCYTES # (AUTO) 1.6 K/uL (20.0-40.0); MEAN CORPUSCULAR HEMOGLOBIN 31.8 uug (23.8-33.4); MEAN CORPUSCULAR HGB CONC 34 g/dL (32.5-36.3); MEAN CORPUSCULAR VOLUME 92.4 fL (73.0-96.2); MONOCYTES # (AUTO) 0.8 K/uL (2.0-10.0); MONOCYTES % (AUTO) 12.3 % (0.0-11.0); NEUTROPHILS # (AUTO) 3.7 K/uL (1.8-8.9); NEUTROPHILS % (AUTO) 60.2 % (38.5-71.5); PLATELET COUNT (AUTO) 145 K/uL (152-348); RED BLOOD CELL COUNT(AUTO) 4.42 MIL/uL (4.06-5.63); WHITE BLOOD COUNT (AUTO) 6.2 K/uL (3.6-10.2)
[2019-03-08] MEDS: IV D5 1/2 NS 1000 ML 1,000 ML IV PRN (08:25)
[2019-03-08] MEDS ORDERED: SWABABLE VALVE TRANSFER SET EA MC ONE (09:39)
[2019-03-08] MEDS ORDERED: IV NORMAL SALINE 250 ML IV ONE (09:39)
[2019-03-08] MEDS ORDERED: IOHEXOL 300MG/ML 100 ML INFUS..BTL ONE (09:39)
[2019-03-08 11:38] VITALS: BP 113/66
[2019-03-08 15:50] VITALS: BP 106/62
[2019-03-08 20:30] VITALS: BP 111/60
[2019-03-08] MEDS: MORPHINE SULFATE 2 MG/1 ML DISP.SYRIN IV PRN (23:19)
[2019-03-09] MEDS: IV D5 1/2 NS 1000 ML 1,000 ML IV PRN ×2 (02:09→17:41)
[2019-03-09] MEDS: PIPERACILLIN/TAZOBACTAM/D5W 3.375 G in IV DEXTROSE 5% 50 ML IV SCH ×3 (02:09→17:50)
[2019-03-09 04:41] VITALS: BP 115/58
[2019-03-09 06:41] LABS: BASOPHILS % (AUTO) 0.6 % (0.0-2.0); EOSINOPHILS # (AUTO) 0.1 K/uL (0.0-0.7); EOSINOPHILS % (AUTO) 1.2 % (0.0-7.0); HEMATOCRIT 39.8 % (36.7-47.1); HEMOGLOBIN 13.9 g/dL (12.5-16.3); LYMPHOCYTES % (AUTO) 18.2 % (20.5-51.5); MEAN CORPUSCULAR HEMOGLOBIN 31.8 uug (23.8-33.4); MEAN CORPUSCULAR HGB CONC 35 g/dL (32.5-36.3); MEAN CORPUSCULAR VOLUME 91.4 fL (73.0-96.2); MONOCYTES # (AUTO) 0.7 K/uL (2.0-10.0); MONOCYTES % (AUTO) 12.2 % (0.0-11.0); NEUTROPHILS # (AUTO) 3.7 K/uL (1.8-8.9); NEUTROPHILS % (AUTO) 67.8 % (38.5-71.5); PLATELET COUNT (AUTO) 164 K/uL (152-348); RED BLOOD CELL COUNT(AUTO) 4.36 MIL/uL (4.06-5.63); WHITE BLOOD COUNT (AUTO) 5.5 K/uL (3.6-10.2)
[2019-03-09 06:45] LABS: CREATININE 1.2 mg/dL (0.6-1.3); MAGNESIUM 1.9 mg/dL (1.8-2.4); PHOSPHOROUS 3.9 mg/dL (2.5-4.9); POTASSIUM 3.7 mmol/L (3.5-5.1)
[2019-03-09 11:07] VITALS: BP 115/72
[2019-03-09 15:18] VITALS: BP 110/68
[2019-03-09 20:05] VITALS: BP 108/67
[2019-03-10] MEDS: MORPHINE SULFATE 2 MG/1 ML DISP.SYRIN IV PRN (00:12)
[2019-03-10] MEDS: PIPERACILLIN/TAZOBACTAM/D5W 3.375 G in IV DEXTROSE 5% 50 ML IV SCH ×3 (02:10→17:09)
[2019-03-10 06:44] VITALS: BP 96/53
[2019-03-10] MEDS: IV D5 1/2 NS 1000 ML 1,000 ML IV PRN (08:26)
[2019-03-10 11:06] VITALS: BP 120/70
[2019-03-10 15:19] VITALS: BP 119/60
== END 2019-03-10 19:00 | disposition home health service (06) | DRG 254 ==
LOC: ER 15:43 → MEDSURG3 21:45
PROVIDERS: ADMIT Nurse Practitioner Acute Care; ATTEND Nurse Practitioner Acute Care
PROC: 05HA33Z Insertion of Infusion Device into Left Brachial Vein, Percutaneous Approach (ICD-10-PCS; principal; 2019-03-09)
DX: K36 Other appendicitis (principal); D69.6 Thrombocytopenia, unspecified; R17 Unspecified jaundice; F12.90 Cannabis use, unspecified, uncomplicated
CPT/HCPCS: 36415; 70030-TC; 83690; 83735; 84100; 84443; 85025; 85730; A4663; G0378; J2270; J2543; J3490; J7030; J7040; J7050; J7060; Q9963; Q9967

== ENCOUNTER 2020-12-07 15:14 | Emergency (ER) | payer OTHER ==
[~2020-12-07] VITALS: Ht 188 cm; Wt 97.5 kg
[2020-12-07] MEDS ORDERED: IV NORMAL SALINE 1000 ML BAG IV ONE (15:30)
--- NOTE | 2020-12-07 16:08 | NUR ---
clean catch urine specimen sent to lab at this time.
[2020-12-07 16:10] LABS: HEMATOCRIT 46.3 % (36.7-47.1); MEAN CORPUSCULAR HEMOGLOBIN 31.5 uug (23.8-33.4); MEAN CORPUSCULAR VOLUME 92.6 fL (73.0-96.2); PLATELET COUNT (AUTO) 195 K/uL (152-348)
[2020-12-07 16:13] LABS: CREATININE 1.1 mg/dL (0.6-1.3); POTASSIUM 3.6 mmol/L (3.5-5.1)
[2020-12-07 16:18] LABS: BILIRUBIN,DIRECT 0.2 mg/dL (0.0-0.2); BILIRUBIN,TOTAL 0.7 mg/dL (0.2-1.0); TOTAL PROTEIN, SERUM 7.4 g/dL (6.4-8.2)
[2020-12-07 16:26] LABS: *BILIRUBIN,URIN NEGATIVE (NEGATIVE); *BLOOD, URINE TRACE INTACT (NEGATIVE); *CLARITY,URINE CLEAR (CLEAR); *COLOR,URINE YELLOW (YELLOW); *KETONES,URINE NEGATIVE (NEGATIVE); *UROBILINOGEN,URINE 0.2 E.U./dl (NORMAL); LEUKOCYTE ESTERASE ,URINE NEGATIVE (NEGATIVE); NITRITE, URINE NEGATIVE (NEGATIVE); PH,URINE 5.5 (5.0-8.0); UGLUCOSE NEGATIVE (NEGATIVE)
== END 2020-12-07 17:39 | disposition home or self-care (01) ==
LOC: ER 15:20
DX: R10.31 Right lower quadrant pain (principal)
CPT/HCPCS: 36415; 83605; 83690; 85025; A4663